=== PATIENT | male | born 1955 | race Hispanic/Latino ===

== ENCOUNTER 2017-04-30 05:35 | Inpatient (IN) | payer BC ==
--- NOTE | 2017-04-30 06:15 | ED PDOC ---
Upper Extremity Pain/Injury Time Seen by Provider: 04/30/17 05:51 Chief Complaint (Nursing): Upper Extremity Problem/Injury Chief Complaint (Provider): Right shoulder pain History Per: Patient History/Exam Limitations: no limitations Onset/Duration Of Symptoms: Mins Current Symptoms Are (Timing): Still Present Additional History Per: Patient Additional Complaint(s): The patient is a 61yo male, no known pmhx, presents to the ED for evaluation of right shoulder pain, chronic but acutely worsening. Pt reports pain is intolerable but has not taken any medication for relief. He reports he has seen Dr. Nolasco for evaluation and since pain was unbearable, pt presented to the ED. He denies any other medical complaints. Past Medical History Reviewed: Historical Data, Nursing Documentation, Vital Signs Vital Signs: Last Vital Signs Temp 98.4 F 04/30/17 05:43 Pulse 96 H 04/30/17 05:43 Resp 18 04/30/17 05:43 BP 146/92 H 04/30/17 05:43 Pulse Ox 100 04/30/17 05:43 - Medical History PMH: No Chronic Diseases - Surgical History Surgical History: No Surg Hx - Family History Family History: States: Unknown Family Hx - Home Medications Home Medications: Ambulatory Orders Medication Instructions Recorded No Known Home Med 04/30/17 - Allergies Allergies/Adverse Reactions: Allergies Allergy/AdvReac Type Severity Reaction Status Date / Time No Known Allergies Allergy Verified 04/30/17 05:43 Physical Exam - Physical Exam Extremity: Negative for: Normal ROM (limited rom due to pain), Deformity, Swelling - Laboratory Results Result Diagrams: 04/30/17 06:12 04/30/17 06:12 - ECG O2 Sat by Pulse Oximetry: 100 Medical Decision Making Medical Decision Making: Time: 0600 Impression: Acute on chronic intractable shoulder pain. Time: [address] Nolasco who advises admission for intractable shoulder pain. Time: [address] Sandhu, hospitalist clinical documentation developer who is aware of case. Scribe Attestation: Documented by Aida Julian acting as a scribe for Ivette Lee MD Provider Scribe Attestation: All medical record entries made by the Scribe were at my direction and personally dictated by me. I have reviewed the chart and agree that the record accurately reflects my personal performance of the history, physical exam, medical decision making, and the department course for this patient. I have also personally directed, reviewed, and agree with the discharge instructions and disposition. Disposition - Disposition Referrals: Kyle Cardona DO, DO [Primary Care Provider] - Disposition Time: 06:16 Condition: STABLE Forms: [employer] ([place])
[2017-04-30 06:20] LABS: BASO % 1.2 % (0.0-2.0); EOS % 0.5 % (0.0-4.0); HEMATOCRIT 40.1 % (35.0-51.0); LYMPH # 1.4 K/uL (1.0-4.3); LYMPH % 44.7 % (20.0-40.0); MEAN CELL VOLUME 102.4 fl (80.0-94.0); MEAN CORPUSCULAR HEMOGLOBIN 34.6 pg (27.0-31.0); MEAN CORPUSCULAR HGB CONC 33.8 g/dL (33.0-37.0); MEAN PLATELET VOLUME 9.1 fl (7.2-11.7); MONO # 0.7 K/uL (0.0-0.8); MONO % 20.8 % (0.0-10.0); NEUT % 32.8 % (50.0-75.0); NRBC % 0.2 % (0.0-0.0); PLATELET COUNT 165 K/uL (130-400); RED CELL DISTRIBUTION WIDTH 14.5 % (11.5-14.5); WHITE BLOOD COUNT 3.1 K/uL (4.8-10.8)
[2017-04-30 06:41] LABS: PARTIAL THROMBOPLASTIN TIME 26.7 Seconds (25.6-37.1)
[2017-04-30 06:43] LABS: BLOOD UREA NITROGEN 16 mg/dl (9-20); CARBON DIOXIDE 27 mmol/L (22-30); CHLORIDE 95 mmol/L (98-107); GFR AFRICAN-AMERICAN > 60; GLUCOSE,RANDOM 99 mg/dL (75-110); POTASSIUM 4.2 MMOL/L (3.6-5.0); SODIUM 134 mmol/l (132-148)
--- NOTE | 2017-04-30 06:51 | CP.PCM.HP ---
History of Present Illness - History of Present Illness History of Present Illness: PCP: Kyle Cardona DO Orthopedic: Dr Nolasco Chief Complaint Right shoulder pain Patient seen and Examined in the ED HPI: 61 years old male with hx of Left shoulder rotator cuff surgery and no Chronic disease hx, comes for an elective right shoulder surgery. He refers more than 3 years of with right shoulder pain, and failed conservative management . Because of this he agreed to have surgery to the right shoulder. 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 absent: Diplopia, Floaters, Irritation, Sees Flashes Ears: absent: Decreased Hearing, Ear Discharge, Ear Pain, Tinnitus Nose/Mouth/Throat: absent: Epistaxis, Nasal Congestion, Nasal Discharge - Cardiovascular Cardiovascular: Edema. absent: Chest Pain, Dyspnea - Respiratory Respiratory: absent: Cough, Wheezing, Chest Congestion, Excessive Mucous Production - Gastrointestinal Gastrointestinal: Constipation, Diarrhea, Nausea - Genitourinary Genitourinary: absent: Dysuria, Flank Pain, Hematuria, Urinary Frequency - Musculoskeletal Musculoskeletal: Arthralgias Additional comments: Right shoulder pain - Integumentary Integumentary: absent: Pruritus, Rash, Skin Ulcer, Sores, Striae, Swelling - Neurological Neurological: absent: Confusion, Focal Weakness, Weakness - Psychiatric Psychiatric: Anxiety. absent: Depression, Panic Attacks - Endocrine Endocrine: absent: Palpitations, Polydipsia, Polyphagia, Polyuria - Hematologic/Lymphatic Hematologic: absent: Easy Bleeding, Easy Bruising Past Patient History - Past Medical History & Family History Past Medical History?: No - Past Social History Smoking Status: Never Smoked Chewing Tobacco Use: No Cigar Use: No Alcohol: Social Drugs: Denies - CARDIAC Hx Cardiac Disorders: No - PULMONARY Hx Respiratory Disorders: No - NEUROLOGICAL Hx Neurological Disorder: No - HEENT Hx HEENT Problems: No - RENAL Hx Chronic Kidney Disease: No - HEMATOLOGICAL/ONCOLOGICAL Hx Blood Disorders: No - INTEGUMENTARY Hx Dermatological Problems: No - MUSCULOSKELETAL/RHEUMATOLOGICAL Hx Musculoskeletal Disorders: Yes Hx Osteoarthritis: Yes - GASTROINTESTINAL Hx Gastrointestinal Disorders: No - GENITOURINARY/GYNECOLOGICAL Hx Genitourinary Disorders: No - PSYCHIATRIC Hx Substance Use: No - SURGICAL HISTORY Hx Surgeries: Yes Other/Comment: Lt shoulder rotator cuff - ANESTHESIA Hx Anesthesia: Yes Hx Anesthesia Reactions: No Meds Allergies/Adverse Reactions: Allergies Allergy/AdvReac Type Severity Reaction Status Date / Time No Known Allergies Allergy Verified 04/30/17 05:43 Physical Exam - Constitutional Appears: No Acute Distress - Head Exam Head Exam: ATRAUMATIC, NORMAL INSPECTION, NORMOCEPHALIC - Eye Exam Eye Exam: EOMI, Normal appearance Pupil Exam: NORMAL ACCOMODATION, PERRL - ENT Exam ENT Exam: Mucous Membranes Moist, Normal Exam, Normal External Ear Exam, Normal Oropharynx - Neck Exam Neck exam: Positive for: Full Rom, Normal Inspection. Negative for: Lymphadenopathy, Tenderness - Respiratory Exam Respiratory Exam: Clear to Auscultation Bilateral. absent: Rales, Rhonchi, Wheezes - Cardiovascular Exam Cardiovascular Exam: REGULAR RHYTHM, RRR, +S1, +S2. absent: Gallop, JVD - GI/Abdominal Exam GI & Abdominal Exam: Normal Bowel Sounds, Soft. absent: Mass, Organomegaly, Tenderness - Rectal Exam Rectal Exam: Deferred - Extremities Exam Extremities exam: Positive for: normal inspection. Negative for: joint swelling Additional comments: Right shoulder pain on external rotation of the shoulder - Back Exam Back exam: NORMAL INSPECTION. absent: CVA tenderness (L), CVA tenderness (R) - Neurological Exam Neurological exam: Alert, CN II-XII Intact, Oriented x3, Reflexes Normal - Psychiatric Exam Psychiatric exam: Anxious, Normal Affect, Normal Mood - Skin Skin Exam: Dry, Intact, Normal Color, Warm Results - Vital Signs Recent Vital Signs: Last Vital Signs Temp 98.4 F 04/30/17 05:43 Pulse 96 H 04/30/17 05:43 Resp 18 04/30/17 05:43 BP 146/92 H 04/30/17 05:43 Pulse Ox 100 04/30/17 06:16 - Labs Result Diagrams: 04/30/17 06:12 04/30/17 06:12 Labs: Laboratory Results - last 24 hr 04/30/17 04/30/1717 06:12 06:12 06:12 WBC 3.1 L RBC 3.92 L Hgb 13.5 Hct 40.1 MCV 102.4 H MCH 34.6 H MCHC 33.8 RDW 14.5 Plt Count 165 MPV 9.1 Neut % (Auto) 32.8 L Lymph % (Auto) 44.7 H [place] % (Auto) 20.8 H Eos % (Auto) 0.5 Baso % (Auto) 1.2 Neut # 1.0 L Lymph # 1.4 [place] # 0.7 Eos # 0.0 Baso # 0.0 PT 10.0 INR 1.0 APTT 26.7 Sodium 134 Potassium 4.2 Chloride 95 L Carbon Dioxide 27 Anion Gap 16 BUN 16 Creatinine 1.2 Est GFR ( Amer) > 60 Est GFR (Non-Af Amer) > 60 Random Glucose 99 Calcium 10.0 - EKG Data EKG comments: NSR 76/min No sign of Ischemia - Imaging and Cardiology Chest x-ray Status: Image reviewed by me Additional comment: No infiltrate No acute pathology Right Shoulder X Ray Additional comment: Right Acromoclavicular joint spur No Fracture nor dislocation Assessment & Plan - Assessment and Plan (Free Text) Plan: #. Right Shoulder Pain, Spur at the Right Acromoclavicular joint - For Elevtive Surgery - Orthopedic Dr Nolasco on consult - Post surgery Pain management - Post surgery DVT prophylaxis - Post Surgery OT/PT All laboratory, radiological, Clinical and Hemodynamical data were reviewed The patient has no Pulmonary nor cardiac history He is cleared with minor to moderate cardiac risk for surgery. William Sandhu MD - Date & Time Date: 04/30/17 Time: 06:51
[2017-04-30 08:17] LABS: RBC URINE 2 /hpf (0-3); URINE BILIRUBIN NEGATIVE (NEGATIVE); URINE BLOOD NEGATIVE (NEGATIVE); URINE COLOR YELLOW (YELLOW); URINE GLUCOSE (UA) NEG (Normal); URINE KETONE NEGATIVE (NEGATIVE); URINE LEUKOCYTE ESTERASE NEG Leu/uL (Negative); URINE PROTEIN NEGATIVE (NEGATIVE); URINE UROBILINOGEN 0.2-1.0 mg/dL (0.2-1.0); WBC URINE 1 /hpf (0-5)
[2017-04-30 09:13] LABS: EOSINOPHIL 1 % (0-7); GIANT PLATELETS PRESENT; LARGE PLATELETS PRESENT; NEUTROPHIL 37 % (42-75); REACTIVE LYMPHOCYTES 2 % (0-0); TOTAL CELLS COUNTED 100
[2017-04-30] MEDS ORDERED: EPINEPHrine 1 mg/ml (1:1000) Inj ONE (10:43)
[2017-04-30] MEDS ORDERED: Bacitracin Ointment 30 GM TUBE ONE (10:44)
[2017-04-30] MEDS ORDERED: Thrombin Topical 5,000 IU Spray Kit ONE (10:44)
[2017-04-30] MEDS ORDERED: Bupivacaine 0.5% Inj(30mL) ONE ×2 (10:44→16:09)
[2017-04-30] MEDS ORDERED: Absorbable Gelatin Sponge Size 100 ONE (10:44)
[2017-04-30] MEDS ORDERED: Lidocaine 1% Inj (20ml) ONE (10:44)
--- NOTE | 2017-04-30 11:34 | RAD ---
PROCEDURE: Radiographs of the Right Shoulder HISTORY: shoulder pain COMPARISON: No prior. FINDINGS: BONES: Normal. No fracture. JOINTS: Normal. Glenohumeral and acromioclavicular joints are remarkable for mild articular cortical sclerosis and limited osteophyte development compatible with osteoarthritis. SOFT TISSUES: Normal. OTHER FINDINGS: None. IMPRESSION: Osteoarthritis right acromioclavicular greater than glenohumeral joints. No acute fracture or dislocation appreciable.
--- NOTE | 2017-04-30 11:35 | RAD ---
HISTORY: shoulder pain COMPARISON: No prior. TECHNIQUE: Chest PA and lateral FINDINGS: LUNGS: No active pulmonary disease. PLEURA: No significant pleural effusion identified. No pneumothorax apparent. CARDIOVASCULAR: Normal. OSSEOUS STRUCTURES: No significant abnormalities. VISUALIZED UPPER ABDOMEN: Normal. OTHER FINDINGS: None. IMPRESSION: No acute cardiopulmonary disease is appreciated.
[2017-04-30] MEDS ORDERED: Ropivacaine 0.5% 30ML IV ONE (12:27)
[2017-04-30] MEDS ORDERED: Propofol 10 mg/ml Inj (20 ML) ONE (12:30)
[2017-04-30] MEDS ORDERED: Rocuronium 10 mg/ml (5 ml) ONE (12:30)
[2017-04-30] MEDS ORDERED: Phenylephrine 10 mg/ml Inj ONE (12:31)
[2017-04-30] MEDS ORDERED: Lidocaine 4% (Laryng-O-Jet) Kit MM ONE (12:31)
[2017-04-30] MEDS ORDERED: Etomidate 20 mg/10ml Inj IV ONE (12:31)
[2017-04-30] MEDS ORDERED: Succinylcholine 200 mg/10 ml Inj IV ONE (12:31)
[2017-04-30] MEDS ORDERED: Midazolam 2 MG/2 ML VIAL ONE (12:34)
[2017-04-30] MEDS ORDERED: Lactated Ringer's 1,000 ML IV ONE ×2 (12:40→15:16)
[2017-04-30] MEDS ORDERED: EPINEPHrine 1 mg/ml (1:1000) Inj IV ONE (13:35)
[2017-04-30] MEDS ORDERED: ePHEDrine 50 mg/ml Inj ONE (13:43)
[2017-04-30] MEDS ORDERED: Dexamethasone 4 mg/1 ml ONE (14:02)
[2017-04-30] MEDS ORDERED: Neostigmine Methylsulfate 3mg/3ml Syringe IV ONE (14:56)
[2017-04-30] MEDS ORDERED: Sodium Chloride 0.9% 500 ML IV ONE (15:30)
[2017-04-30] MEDS ORDERED: Lactated Ringer's 1,000 ML IV SCH (16:41)
--- NOTE | 2017-04-30 16:45 | PCM.ANESB1 ---
Interscalene Block - Brachial Plexus Date of Procedure: 04/30/17 Anesthesiologist: Ritika Pre-Procedure Diagnosis: Right shoulder OA Post-Procedure Diagnosis: Same Procedure Performed: Interscalene Block of Brachial Plexus Right - Procedure Interscalene Block of Brachial Plexus: This procedure was explained to the patient that it is for post-operative pain management. Consent was obtained after a thorough discussion with the patient regarding the benefits and possible complications of local anesthetic block of the Brachial Plexus at the Interscalene area. The patient was brought to the Operating Room and standard monitors were applied. Time out was held with the circulating nurse to confirm the correct surgery and appropriate block. After applying Oxygen by nasal cannula and administering IV Sedation, the patient's head was gently rotated away from the __right____operative shoulder and the anterior scalene groove was carefully palpated. The ultrasound transducer was then applied to the skin in the transverse plane and the brachial plexus was visualized lateral to the carotid artery and in between the anterior and middle scalene muscles. After identification,the anterior lateral portion of the neck was prepped with Betadine solution three times and Lidocaine 1% was injected subcutaneously for topical analgesia. At this point, a # 22 gauge Stimuplex 2 inches insulated needle was inserted into the interscalene groove and directed in a caudal and midline direction. The needle was inserted lateral to the ultrasound transducer in-plane towards the brachial plexus in a [id number] direction. Needle advancement was performed carefully under direct ultrasound visualization. Nerve stimulator was used and twitched of the affected extremity including the hand brachialis muscles, biceps and the deltoid was obtained at a current of __0.3___MA. After repeated negative aspiration,__2___cc of_0.5____, ropivicaine were injected and this was followed with __28___cc of _0.5____% ropivicaine . Under ultrasound guidance the local anesthetics were observed surrounding the roots of the brachial plexus. The needle was removed intact and sterile dressing was applied. The patient had stable vital signs, was conscious and in no apparent distress. The patient tolerated the interscalene block of the bracheal plexus well with stable vital signs and was prepared for subsequent surgery.
--- NOTE | 2017-04-30 16:48 | PCM.ANESB1 ---
Interscalene Block - Brachial Plexus Date of Procedure: 04/30/17 Anesthesiologist: Ritika Pre-Procedure Diagnosis: Right Shoulder OA Post-Procedure Diagnosis: Same Procedure Performed: Interscalene Block of Brachial Plexus Right - Procedure Interscalene Block of Brachial Plexus: This procedure was explained to the patient that it is for post-operative pain management. Consent was obtained after a thorough discussion with the patient regarding the benefits and possible complications of local anesthetic block of the Brachial Plexus at the Interscalene area. The patient was brought to the Operating Room and standard monitors were applied. Time out was held with the circulating nurse to confirm the correct surgery and appropriate block. Under general anesthesia at request of surgeon, the patient's head was gently rotated away from the __right____operative shoulder and the anterior scalene groove was carefully palpated. The ultrasound transducer was then applied to the skin in the transverse plane and the brachial plexus was visualized lateral to the carotid artery and in between the anterior and middle scalene muscles. After identification,the anterior lateral portion of the neck was prepped with Chloraprep. At this point, a # 22 gauge Stimuplex 2 inches insulated needle was inserted into the interscalene groove and directed in a caudal and midline direction. The needle was inserted lateral to the ultrasound transducer in-plane towards the brachial plexus in a [id number] direction. Needle advancement was performed carefully under direct ultrasound visualization. Nerve stimulator was used and twitched of the affected extremity including the hand brachialis muscles, biceps and the deltoid was obtained at a current of __0___MA. After repeated negative aspiration,__2___cc of___0.5%__,____Bupivicaine were injected and this was followed with __8___cc of ___0.5__% bupivicaine . Under ultrasound guidance the local anesthetics were observed surrounding the roots of the brachial plexus. The needle was removed intact and sterile dressing was applied. The patient had stable vital signs The patient tolerated the interscalene block of the bracheal plexus well and was stable throughout emergence.
--- NOTE | 2017-04-30 16:50 | PCM.SURG1 ---
Surgeon's Initial Post Op Note - Surgeon's Notes Surgeon: Constance Technical Training Coordinator: NANCY Ray Type of Anesthesia: General Endo, Block Regional Anesthesia Administered By: Dr Lagunas Pre-Operative Diagnosis: Rotator cuff arthritis R shoulder. grade 3 tear r rotator cuff (3 cm). Biceps tendon attenuation Operative Findings: as above. synovitis/labral tear Post-Operative Diagnosis: as above Operation Performed: R TSR (Reverse). repair gr 3 rotator cuff. biceps tenodesis. \arthrotomy excision labrum Specimen/Specimens Removed: synovium/cuff/bone Estimated Blood Loss: EBL {In ML}: 75 Blood Products Given: N/A Drains Used: No Drains Date of Surgery/Procedure: 04/30/17 Time of Surgery/Procedure: 13:50 (time in room12:40/anesthesia indcution time)
[2017-04-30] MEDS ORDERED: Labetalol 5 mg/ml Inj 20ML IVP ONE (17:00)
[2017-04-30 17:15] VITALS: RESP 18
[2017-04-30 17:54] VITALS: BP 127/82; PULSE 98; TEMP 97.9; O2SAT 96
--- NOTE | 2017-04-30 18:56 | RAD ---
PROCEDURE: Right shoulder HISTORY: s/p right shoulder replacement COMPARISON: Preoperative study April 30, 2017. TECHNIQUE: Single view portable FINDINGS: Satisfactory position alignment of components right shoulder replacement. IMPRESSION: Satisfactory postoperative status.
[2017-05-01] MEDS ORDERED: Enoxaparin 40 mg Syringe SC SCH (09:00)
--- NOTE | 2017-05-01 10:30 | OP ---
PROCEDURE DATE: 04/30/2017 PREOPERATIVE DIAGNOSIS: Rotator cuff arthritis of the right shoulder. POSTOPERATIVE DIAGNOSES: 1. Rotator cuff arthritis of the right shoulder. 2. Complete tear of the rotator cuff measuring approximately 3 cm and essentially irreparable. 3. Biceps tenodesis. PROCEDURE: Arthrotomy, excision of glenoid labrum, shoulder joint. SURGEON: Dr. Nolasco. BOBCAT OPERATOR: Rosa Del Rio, certified registered nursing and asset protection assistant. TYPE OF ANESTHESIA: General endotracheal anesthesia, regional anesthesia, scalene block. ANESTHESIA ADMINISTERED BY: Arjun Yost MD ESTIMATED BLOOD LOSS: Approximately 75 mL. COMPLICATIONS: No complications. DRAINS: No drains. OPERATIVE INDICATION: The patient is a patient well known to my practice, who presents with severe pain and restricted range of motion to the right shoulder. The patient has significant comorbidities with alcoholic liver disease and is a retired worker. Pros, cons, risks, and benefits of surgical approach were discussed, possibility of mechanical failure, infection, thromboembolic disease, stiffness, axillary nerve injury, specifically secondary or tertiary surgery was discussed. The patient can no longer withstand the pain and wished for the surgery to be accomplished. Alternative procedures were discussed with the patient specifically benign neglect, intraarticular injections which had been tried and arthroscopic rotator cuff repair. It was explained to the patient that because of the large nature of the arthroscopic rotator cuff tear, the concept of limited goals arthroscopy was discussed. The patient can no longer withstand the pain and wished for the surgery to be accomplished, specifically arthroplasty. The difference between the anatomic and the reverse shoulder arthroplasties were discussed. DESCRIPTION OF PROCEDURE: After having obtained informed consent in the above fashion, after having identified side, site, and procedure and a critical pause/time-out after satisfactory induction of the anesthetic, the patient identified as Jay Rey was placed in the modified mohr chair position. The right upper extremity was placed in the shoulder position and the right upper extremity was prepped and free draped in the usual fashion for extremity surgery. The shoulder was marked lateral aspect of the acromion in the distal third of the clavicle. for the distal third of the clavicle to the deltoid. The skin was insufflated with a solution of 1:1000 epinephrine and 250 mL of saline. The skin incision was carried down through the skin and subcutaneous tissue. external rotation, the deltopectoral interval was identified and the cephalic vein was preserved and dissected. This having been accomplished, the blunt dissection was carried down in the clavipectoral fascia. The blunt dissection having been accomplished to the clavipectoral fascia, the strap muscles were identified and the clavipectoral fascia was divided. The deep shoulder ____ was positioned with external rotation at approximately 1 cm lateral to the lesser tuberosity. The rotator cuff tear was identified and the rotator cuff was incised using electrocautery with further external rotation. Shoulder was dislocated. The biceps tendon was tenotomized. This having been accomplished, the humerus having been identified, there was found to be rotator cuff arthropathy, arthritis of the glenohumeral joint. At this point in time, the intramedullary cutting device was placed and the setting through the reverse osteotomy was accomplished. The osteotomy having been accomplished, the plate was placed to protect the humeral head. At this point in time, the glenoid was exposed. Arthrotomy of the glenohumeral joint was accomplished, the labrum was excised. The glenoid was identified. The guide pin was introduced and reaming and reaming was accomplished and at this point in time, with acceptable position of the guide pin, reaming over the guide pin was accomplished. The bur was used to roughen the situation, this having been accomplished, the glenoid was impacted and was held with 2 screws, 20 mm superiorly, 26 mm inferiorly. The small glenosphere was attached, impacted, and the screw was affixed. This having been accomplished, the attention was turned to the humerus, reaming to 21 mm was accomplished. Broaching with a 21 mm stem was accomplished, and found to be stable in all plains. Arthrotomy and excision of the glenoid labrum having been accomplished, the humerus was prepared in the definitive humeral stem was impacted, reamed, and the proximal body was fixed with screw. the shoulder was reduced and found to be stable in all plains. The wound was thoroughly irrigated with the shoulder in approximately 10 degrees of internal rotation at the neutral forward flexion. The subscap was repair using interrupted fiber wire. The biceps was tenodesed to the subscapularis mass again using interrupted fiber wire. The wound was thoroughly irrigated. Closure of the deltopectoral interval was with 0 Quill, followed by 2-0 Quill subcu, pedro for skin. The patient had indicated that he wished to go home the same day. The patient was discharged home same day surgery and was very comfortable with the block accomplished by Dr. Yost. pressure dressing and shoulder immobilizer, sling, and swathe was introduced and the postoperative x-rays revealed position of the construct. Kp Nolasco MD
--- NOTE | 2017-05-01 11:26 | CARD ---
APPROVED REPORT EKG Measurement Heart [id number] <Conclusion> Normal sinus rhythm Normal ECG
== END 2017-04-30 19:30 | disposition home or self-care (01) | DRG 483 ==
LOC: H.ER 05:35 → H.ERHOLD 06:07 → H.MEDSURG1 08:21
PROVIDERS: ADMIT Internal Medicine; ATTEND Internal Medicine
PROC: 3E0T3BZ Introduction of Anesthetic Agent into Peripheral Nerves and Plexi, Percutaneous Approach (ICD-10-PCS; 2017-04-30)
PROC: 0RRJ00Z Replacement of Right Shoulder Joint with Reverse Ball and Socket Synthetic Substitute, Open Approach (ICD-10-PCS; principal; 2017-04-30 11:15)
PROC: 0LS30ZZ Reposition Right Upper Arm Tendon, Open Approach (ICD-10-PCS; 2017-04-30 11:15)
PROC: 0LQ10ZZ Repair Right Shoulder Tendon, Open Approach (ICD-10-PCS; 2017-04-30 11:15)
DX: M19.011 Primary osteoarthritis, right shoulder (principal); M65.9 Synovitis and tenosynovitis, unspecified; M75.121 Complete rotator cuff tear or rupture of right shoulder, not specified as traumatic